=== PATIENT | female | born 1965 | race Caucasian/White ===

== ENCOUNTER → 2021-03-02 | Outpatient (CLI) | payer OTHER ==
[2021-03-02 03:42] LABS: CALCIUM 8.6 mg/dL (8.4-10.5); CARBON DIOXIDE 30.5 mmol/L (20.0-32)
[2021-03-02 03:48] LABS: BASOPHIL # 0.1 10^3/uL (0.0-0.1); BASOPHIL % 1.1 % (0.0-0.2); EOSINOPHIL # 0.2 10^3/uL (0.0-0.2); EOSINOPHIL % 2.3 % (0.0-5.0); LYMPHOCYTES # 1.39 10^3/uL1 (1.0-4.8); LYMPHOCYTES % 21.1 % (24.0-44.0); MEAN CORP HGB 28.9 pg (26-34); MONOCYTES # 0.5 10^3/uL (0.3-0.8); MONOCYTES % 6.8 % (5.0-12.0); NEUTROPHIL # 4.5 10^3/uL (1.8-7.7); NEUTROPHILS % 68.7 % (41.0-85.0); PLATELET COUNT 260 10^3/uL (150-400); RED CELL DISTRIBUTION WIDTH 12.8 % (11.5-14.5)
== END | disposition home or self-care (01) ==
LOC: NPLAB 03:12
PROVIDERS: ATTEND Family Medicine
DX: G40.911 Epilepsy, unspecified, intractable, with status epilepticus (principal); I10 Essential (primary) hypertension
CPT/HCPCS: 80053; 85025

== ENCOUNTER 2021-03-19 12:53 | Emergency (ER) | payer MEDICARE, OTHER ==
[~2021-03-19] VITALS: Ht 162.6 cm; Wt 117.5 kg
[2021-03-19 13:14] VITALS: BP 155/104
[2021-03-19 13:19] VITALS: BP_SYST 155
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
--- NOTE | 2021-03-19 13:26 | NUR ---
AL'S OFFICE AL'S OFFICERS PADMINI AND OSCAR HERE TO TALK TO PATIENT.
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
[2021-03-19] MEDS ORDERED: ZOFRAN ODT SL STA (13:42)
[2021-03-19] MEDS ORDERED: ZOFRAN ODT ONE (13:47)
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
[2021-03-19 13:50] VITALS: BP 152/75
== END 2021-03-19 13:50 | disposition home or self-care (01) ==
LOC: ER 12:53
DX: F29 Unspecified psychosis not due to a substance or known physiological condition (principal); R53.1 Weakness; I10 Essential (primary) hypertension; Z88.0 Allergy status to penicillin; Z88.8 Allergy status to other drugs, medicaments and biological substances
CPT/HCPCS: 99283

== ENCOUNTER → 2021-04-24 | Outpatient (CLI) | payer MEDICARE ==
[2021-04-24 17:41] LABS: BASOPHIL # 0.1 10^3/uL (0.0-0.1); BASOPHIL % 1.2 % (0.0-0.2); EOSINOPHIL # 0.2 10^3/uL (0.0-0.2); MEAN CORP HGB 28.1 pg (26-34); MONOCYTES # 0.5 10^3/uL (0.3-0.8); MONOCYTES % 5.9 % (5.0-12.0); NEUTROPHIL # 6.1 10^3/uL (1.8-7.7); NEUTROPHILS % 72.7 % (41.0-85.0); PLATELET COUNT 282 10^3/uL (150-400); RED CELL DISTRIBUTION WIDTH 14.1 % (11.5-14.5)
[2021-04-24 18:14] LABS: CALCIUM 9.4 mg/dL (8.4-10.5); CARBON DIOXIDE 26.1 mmol/L (20.0-32)
== END | disposition home or self-care (01) ==
LOC: NPLAB 17:16
PROVIDERS: ATTEND Family Medicine
DX: I10 Essential (primary) hypertension (principal); G40.911 Epilepsy, unspecified, intractable, with status epilepticus; E25.0 Congenital adrenogenital disorders associated with enzyme deficiency
CPT/HCPCS: 80053; 85025